=== PATIENT | male | born 1980 | race Two or more races ===

== ENCOUNTER 2024-06-26 11:55 | Emergency (ER) | payer MEDICAID, OTHER ==
[2024-06-26] MEDS: TETANUS-DIPTH-ACEL PERTUSSIS 0.5ML SYR Tdap IM ONE (12:40)
[2024-06-26 12:43] VITALS: BP 144/97; TEMP 98.3
[2024-06-26 12:45] VITALS: PULSE 92; RESP 18; O2SAT 97
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
== END 2024-06-26 13:06 | disposition home or self-care (01) ==
LOC: ER 12:01
DX: S61.412A Laceration without foreign body of left hand, initial encounter (principal); W45.8XXA Other foreign body or object entering through skin, initial encounter; Y93.89 Activity, other specified; Y92.89 Other specified places as the place of occurrence of the external cause; Y99.8 Other external cause status
CPT/HCPCS: 12001; 90471; 90715